=== PATIENT | female | born 1950 | race Caucasian/White ===

== ENCOUNTER 2022-01-16 10:10 | Emergency (ER) | payer OTHER, SELFPAY ==
--- NOTE | ~2022-01-16 | XR_ITS ---
XR hip RT min 2V DATE: 01/16/2022 11:00 INDICATION: Right hip pain for 4 to 5 days. No injury. TECHNIQUE: AP and lateral views COMPARISON: None FINDINGS: Prominent degenerative disc disease is noted at L4-5 and L5-S1. Normal alignment at the right sacroiliac joint. No fracture, dislocation, avascular necrosis or bone destruction of the right hip is detected. Right hip joint space appears relatively preserved. IMPRESSION: No significant abnormality of the right hip Prominent degenerative disc disease at L4-5 and L5-S1 Reviewed, dictated and finalized at location B.
[2022-01-16 10:14] VITALS: BP 141/84; PULSE 72; RESP 14; TEMP 36.1; O2SAT 98
--- NOTE | 2022-01-16 10:37 | ED.EXTPRO ---
HPI - Extremity Problem General Chief complaint: Extremity Problem,Nontraumatic Stated complaint: right back pain Time Seen by Provider: 01/16/22 10:24 History of Present Illness HPI Narrative: Patient is a 71-year-old female here for evaluation of atraumatic right hip pain. Patient states the pain came on about 2 days ago, is worse with movement and with ambulation. The pain originates in her posterior thoracic area and will radiate down her right leg. She also reports intermittent shooting paresthesias down her posterior right leg. She attempted ibuprofen and her friend's gabapentin yesterday without significant relief of her pain. She has been walking but just notes it is painful. Denies any incontinence or retention of bowel or bladder, saddle anesthesia, fevers or chills, nausea or vomiting, history of malignancy or IV drug use. Related Data Home Medications Medication Instructions Recorded Confirmed atorvastatin 40 mg tablet 40 mg PO DAILY 01/07/22 01/16/22 Allergies Allergy/AdvReac Type Severity Reaction Status Date / Time No Known Allergies Allergy Unverified 01/16/22 09:39 Review of Systems Review of Systems: Gen: Denies fevers or chills Eyes: Denies eye pain or visual change ENT: Denies congestion Respiratory: Denies shortness of breath or cough CV: Denies chest pain or palpitations GI: Denies abdominal pain nausea, emesis or diarrhea : denies burning, urgency, frequency or hematuria Musculoskeletal: Reports right hip pain. Denies back pain or muscle pain Neuro: Denies numbness, tingling, weakness or focal weakness Skin: Denies rash Except as documented, all other systems reviewed and negative [facility] Past Medical History Medical History Arthritis HLD (hyperlipidemia) Social History Social History Social History: Pt drinks 3 cups of coffee daily Smoking status: Never smoker Alcohol intake: never Substance use: never Exam Narrative: APPEARANCE: Uncomfortable appearing. EYES: EOMI HEENT: Normocephalic, atraumatic, OMM RESPIRATORY: No respiratory distress Clear to auscultation bilaterally with no rhonchi wheezing or rales. CARDIOVASCULAR: 2+ DP and PT pulses bilaterally. Regular rate and rhythm without murmurs rubs or gallops. ABDOMINAL: Soft, nontender, nondistended, no rebound or guarding MUSCULOSKELETAL: No bony tenderness to palpation along C, T, or L-spine. No bony tenderness to palpation over right hip. Straight leg raise positive on the right. Full range of motion in bilateral lower extremities; notes pain with hip flexion on the right. No edema. NEURO: Awake and alert. Following commands, speech normal, no focal deficits SKIN:: Warm, dry. No rashes lesions or abrasions PSYCHIATRIC: Normal affect/mood Course Vital Signs Vital signs: Vital Signs Temperature 97.0 F L 01/16/22 10:14 Pulse Rate 72 01/16/22 10:14 Respiratory Rate 14 01/16/22 10:14 Blood Pressure 141/84 H 01/16/22 10:14 Pulse Oximetry 98 01/16/22 10:14 Oxygen Delivery Room Air 01/16/22 10:14 Temperature 97.0 F L 01/16/22 10:14 Pulse Rate 70 01/16/22 12:10 Respiratory Rate 15 01/16/22 12:10 Blood Pressure 159/86 H 01/16/22 12:10 Pulse Oximetry 100 01/16/22 12:10 Oxygen Delivery Room Air 01/16/22 10:14 MDM - Extremity (Nontraumatic) MDM Narrative Medical decision making narrative: 71-year-old female here for evaluation of atraumatic right hip pain for the past several days that radiates down her right lower extremity. Here she is nontoxic-appearing with normal vital signs. She has no midline tenderness to her C, T or L-spine, or right hip. Her straight leg raise is positive. Images of the right hip are reassuring. Patient's pain improved with lidocaine patch, ibuprofen and Tylenol in the ED. Likely sciatica given patient's history and physical exam. No b
[2022-01-16] MEDS: ACETAMINOPHEN 325 MG TABLET 650 MG PO (11:03)
[2022-01-16] MEDS: IBUPROFEN 600 MG TABLET PO (11:05)
[2022-01-16] MEDS: CYCLOBENZAPRINE HCL 10 MG TABLET PO (11:06)
--- NOTE | 2022-01-16 11:07 | PC.NURSE ---
Assumed pt care from PALMER Cool at 1100
[2022-01-16] MEDS: LIDOCAINE 5% PATCH 1 PATCH TRANSDERM (11:24)
[2022-01-16 12:10] VITALS: BP 159/86; PULSE 70; RESP 15; O2SAT 100
== END 2022-01-16 12:15 | disposition home or self-care (01) ==
PROVIDERS: Emergency Provider Emergency Medicine; PCP Internal Medicine
DX: M54.31 Sciatica, right side (principal); M19.90 Unspecified osteoarthritis, unspecified site; E78.5 Hyperlipidemia, unspecified
CPT/HCPCS: 73502; 99283; A9270

== ENCOUNTER 2022-01-19 17:05 | Emergency (ER) | payer OTHER, SELFPAY ==
--- NOTE | ~2022-01-19 | CT_ITS ---
EXAMINATION: CT lumbar spine wo con DATE: 01/19/2022 18:08 INDICATION: lower back pain . TECHNIQUE: Computed tomography (CT) of the lumbar spine was performed without intravenous contrast. T he dose-length product was 816.18 mGy-cm. COMPARISON: None. FINDINGS: 5 nonrib-bearing lumbar-type vertebral bodies. Pedicles intact. 5 mm anterolisthesis of L3 on L4. Vertebral body heights preserved. Multilevel degenerative disc disease, severe at L3-4 and L4- 5. Multilevel severe facet arthropathy throughout the lumbar spine. Severe central canal narrowing at L3-4, moderate central canal narrowing at all remaining levels. Severe bilateral neural foraminal na rrowing at L3-4 and L4-5 IMPRESSION: No acute fracture or traumatic malalignment in the lumbar spine. Severe degenerative changes, as abov e. Reviewed, dictated and finalized at location K. IMPRESSION: No acute fracture or traumatic malalignment in the lumbar spine. Severe degener ative changes, as above.
[2022-01-19 17:10] VITALS: BP 145/76; PULSE 84; RESP 20; TEMP 36.4; O2SAT 98
--- NOTE | 2022-01-19 17:54 | ED.EXTPRO ---
HPI - Extremity Problem General Chief complaint: Extremity Problem,Nontraumatic Stated complaint: right hip pain Time Seen by Provider: 01/19/22 17:28 History of Present Illness HPI Narrative: 71-year-old female returns emergency room with unresolved low back pain. Patient was seen 3 days ago and according to chart review was told that it is possible sciatica. Patient was given anti-inflammatories and muscle relaxer and states that the pain has not gotten any better. Denies any saddle anesthesia. States pain radiates down into her right leg. Pain is worse when she attempts to ambulate. Related Data Home Medications Medication Instructions Recorded Confirmed atorvastatin 40 mg tablet 40 mg PO DAILY 01/07/22 01/16/22 Allergies Allergy/AdvReac Type Severity Reaction Status Date / Time No Known Allergies Allergy Verified 01/19/22 17:13 Review of Systems Review of Systems: CONSTITUTIONAL: Denies fever, chills, or sweats. EYES: Denies visual changes, redness, or discharge. ENT: Denies rhinorrhea, congestion, sore throat, or otalgia. CARDIOVASCULAR: Denies chest pain, palpitations, or edema. RESPIRATORY: Denies cough or dyspnea. GASTROINTESTINAL: Denies abdominal pain, nausea, vomiting, or diarrhea. GENITOURINARY: Denies dysuria or hematuria. SKIN: Denies rash or itching. MUSCULOSKELETAL: Reports right lower back pain NEUROLOGIC: Denies headache, numbness, dizziness, or weakness. PSYCHIATRIC: Denies anxiety or depression. [facility] Past Medical History Medical History Arthritis HLD (hyperlipidemia) Social History Social History Social History: Pt drinks 3 cups of coffee daily Smoking status: Never smoker Alcohol intake: never Substance use: never Exam Narrative: GENERAL: Well-appearing, well-nourished, no physical limitations, and in no acute distress. HEAD: Normocephalic, atraumatic. EYES: Conjunctivae normal, PERRLA and EOMI. CHEST: Clear to auscultation. No respiratory distress. No wheezes rales or rhonchi. No tenderness. HEART: Regular rate and rhythm. No murmur heard. Normal peripheral pulses. BACK: No CVA tenderness; No midline lumbar tenderness, no step-offs, no bony abnormality; FROM. +SLR right leg EXTREMITIES: Normal range of motion. No edema. No clubbing or cyanosis SKIN: Warm, dry, no rash. No noted wounds NEURO: No focal deficits. Alert and oriented x3. MAEW. CN's II-XI intact bilaterally, normal gait PSYCH: Cooperative. Normal mood and affect. Course Vital Signs Vital signs: Vital Signs Temperature 36.4 C 01/19/22 17:10 Pulse Rate 84 01/19/22 17:10 Respiratory Rate 20 01/19/22 17:10 Blood Pressure 145/76 H 01/19/22 17:10 Pulse Oximetry 98 01/19/22 17:10 Oxygen Delivery Room Air 01/19/22 17:10 Temperature 36.4 C 01/19/22 17:10 Pulse Rate 84 01/19/22 17:10 Respiratory Rate 20 01/19/22 17:10 Blood Pressure 145/76 H 01/19/22 17:10 Pulse Oximetry 98 01/19/22 17:10 Oxygen Delivery Room Air 01/19/22 17:10 MDM - Extremity (Nontraumatic) Imaging Data Radiologist's impression: Impressions Lumbar Spine CT 01/19/22 18:29 IMPRESSION: No acute fracture or traumatic malalignment in the lumbar spine. Severe degenerative changes, as above. Discharge Plan Discharge Clinical Impression: Acute low back pain with sciatica Patient Disposition: Home, Self-Care Condition: Stable Instructions: Antibiotic Form, Sciatica (ED) Prescriptions: New prednisone 20 mg tablet 40 mg PO DAILY 5 Days Qty: 10 0RF tramadol 50 mg tablet 50 mg PO Q6H PRN (Reason: pain) Qty: 15 0RF No Action atorvastatin 40 mg tablet 40 mg PO DAILY naproxen 500 mg tablet 500 mg PO BID Qty: 60 1RF cyclobenzaprine 10 mg tablet 10 mg PO HS PRN (Reason: muscle spasm) Qty: 7 0RF lidocaine [Lidoderm] 5 % adhesive
== END 2022-01-19 19:00 | disposition home or self-care (01) ==
PROVIDERS: Emergency Provider Nurse Practitioner Family; PCP Internal Medicine
DX: M54.41 Lumbago with sciatica, right side (principal); E78.5 Hyperlipidemia, unspecified; M19.90 Unspecified osteoarthritis, unspecified site
CPT/HCPCS: 72131; 96372; 99284; J1100

== ENCOUNTER 2022-02-25 10:33 | Emergency (ER) | payer OTHER, SELFPAY ==
[2022-02-25] VITALS (7 sets, daily range): BP systolic 122–157; BP diastolic 71–78; PULSE 63–74; RESP 12–14; TEMP 36.3; O2SAT 97–100
--- NOTE | ~2022-02-25 | CT_ITS ---
EXAMINATION: CT brain wo con DATE: 02/25/2022 12:58 INDICATION: Vertigo TECHNIQUE: Computed tomography (CT) of the head was performed without intravenous contrast. Sagittal and coronal reconstructions were performed. The mA was adjusted according to patient size. Iterative reconstruction technique was employed. The dose-length product was 529.67 mGy-cm. COMPARISON: None FINDINGS: No acute intracranial hemorrhage, acute infarction or abnormal extra axial fluid collection. Ventricl es are normal and symmetric. No mass/mass effect. The orbits, paranasal sinuses and mastoid air cells are normal. Minimal intracranial calcified cerebral atherosclerosis is noted at the carotid siphons. IMPRESSION: 1. Normal brain. No acute intracranial process. Reviewed, dictated and finalized at location B.
--- NOTE | 2022-02-25 10:44 | ECG_ITS ---
Measurements Intervals Adrian Rate: 72 P: 43 MO: 161 QRS: 52 QRSD: 86 T: 23 QT: 406 QTc: 445 Interpretive Statements SINUS RHYTHM BASELINE ARTIFACT IS PRESENT NO PREVIOUS ECG AVAILABLE FOR COMPARISON Electronically Signed On 02-25-2022 15:25:21 CDT by Marva Alejandro M.D.
[2022-02-25 10:58] LABS: Basophils Percent Auto 0.3 % (0.2-1.2); Eosinophils Absolute Auto 0.1 K/mm3 (0-0.3); Eosinophils Percent Auto 0.6 % (0-4.4); Hematocrit 39.9 % (37.0-47.0); Hemoglobin 12.5 g/dL (12.0-15.0); Immature Granulocyte Absolute 0.02 K/mm3 (0.00-0.031); Immature Granulocyte Percent A 0.2 % (0-0.5); Lymphocytes Absolute Auto 1.97 K/mm3 (0.9-3.2); Lymphocytes Percent Auto 21.7 % (18.3-44.2); Mean Corpuscular HGB Conc 31.3 g/dl (32-36); Mean Corpuscular Hemoglobin 26.6 pg (26-34); Mean Corpuscular Volume 84.9 fl (80-100); Mean Platelet Volume 10.2 fl (7.4-10.4); Monocytes Absolute Auto 0.4 K/mm3 (0.1-0.6); Monocytes Percent Auto 4.3 % (2.6-8.5); Neutrophils Absolute Auto 6.6 K/mm3 (1.3-6.7); Neutrophils Percent Auto 72.9 % (45.5-73.1); Platelet Count Result 305 k/mm3 (150-375); Red Cell Distribution Width 13.6 % (11.5-14.5); White Blood Count 9.1 K/mm3 (4.5-10.0)
[2022-02-25 11:12] LABS: Alanine Aminotransferase 25 U/L (6-35); Albumin Level 4.4 g/dL (3.5-5.1); Alkaline Phosphatase 91 U/L (38-126); Anion Gap 9 mmol/L (8-16); Aspartate Amino Transferase 27 U/L (14-36); Bilirubin,Total 0.6 mg/dL (0.2-1.3); Blood Urea Nitrogen 22 mg/dL (7-17); Calcium 9.2 mg/dL (8.4-10.2); Carbon Dioxide 27 mmol/L (22-30); Chloride 102 mmol/L (98-107); Estimated CRCL calculation 58 ml/min; Estimated Glomerular Filt Rate > 60; Glucose 162 mg/dL (65-110); Lipase 189 U/L (23-300); Potassium 4.4 mmol/L (3.4-5.0); Sodium 138 mmol/L (137-145)
[2022-02-25 11:18] LABS: Add Urine Microscopic? NO; Appearance Urine Clear (Clear); Bilirubin Urine Negative (Negative); Blood Urine Negative (Negative); Color Urine Yellow (Yellow); Glucose Urine UA Negative (Negative); Ketones Urine Negative (Negative); Leukocyte Esterase Ur Negative LEU/UL (Negative); Nitrate Urine Negative (Negative); Protein Urine Negative (Negative); Specific Grav Ur 1.024 (1.001-1.035); Urobilinogen Urine Negative mg/dL (<2.0)
--- NOTE | 2022-02-25 12:24 | ED.DIZZY ---
HPI - Dizziness General Chief Complaint: Dizziness Stated Complaint: dizzy Time Seen by Provider: 02/25/22 12:00 History of Present Illness HPI Narrative: Patient is a 71-year-old female with a history of hyperlipidemia presenting with dizziness. Patient states that she woke up this morning and had a sensation of vertigo associated with nausea and an episode of vomiting. Patient states that if she lays still the vertigo goes away. She states that currently she only feels it slightly when she is moving her head. She denies headache, numbness, weakness, slurred speech, ataxia, vision changes. States that she still feels mildly nauseous. She denies chest pain, shortness of breath, abdominal pain, diarrhea, dysuria, leg swelling. Related Data Home Medications Medication Instructions Recorded Confirmed atorvastatin 40 mg tablet 40 mg PO DAILY 01/07/22 01/16/22 Allergies Allergy/AdvReac Type Severity Reaction Status Date / Time No Known Allergies Allergy Verified 02/25/22 10:44 Review of Systems Review of Systems: All systems reviewed & are unremarkable except as noted in HPI and below PMFSH Past Medical History Medical History Arthritis HLD (hyperlipidemia) Social History Social History Social History: Pt drinks 3 cups of coffee daily Smoking status: Never smoker Alcohol intake: never Substance use: never Exam Narrative: GENERAL: Well-appearing, well-nourished, and in no acute distress. HEAD: Normocephalic, atraumatic. EYES: PERRLA and EOMI. ENT: Nares clear, no rhinorrhea or epistaxis. Mucous membranes moist. NECK: Supple. CHEST: Clear to auscultation. No respiratory distress. HEART: Regular rate and rhythm. No murmur heard. Normal peripheral pulses. ABDOMEN: Soft, nontender, nondistended, normal active bowel sounds. EXTREMITIES: Normal range of motion. No edema. SKIN: Warm, dry, no rash. NEURO: No focal deficits. Cranial nerves intact. [id number] intact. No pronator drift. 5 out of 5 strength in all extremities. No sensory deficits. Alert and oriented x3. PSYCH: Normal mood and affect. Course Course Emergency Course: Patient is a 71-year-old female presenting with dizziness. Patient is slightly hypertensive, though his vitals are within normal limits. Patient is well-appearing and in no acute distress. Exam is remarkable for the above. She is neurologically intact. Given the description of her symptoms, I suspect that this is a peripheral cause of vertigo however given her age I will obtain CT head. Will give fluids, Zofran, meclizine. EKG per my interpretation shows normal sinus rhythm, normal axis and intervals, no ST elevations or depressions. Blood work is unremarkable. CT head shows no acute abnormalities. On reevaluation, the patient reports significant improvement in her symptoms. She no longer feels nauseated or dizzy. She is able to tolerate p.o. intake. Ambulating without difficulty. I will prescribe short course of meclizine and I advised close follow-up with her primary care provider. Strict return precautions given. Patient and her sister voiced understanding and are agreeable with plan. Discharged in stable condition. Vital Signs Vital signs: Vital Signs Temperature 97.4 F L 02/25/22 10:41 Pulse Rate 74 02/25/22 10:41 Respiratory Rate 14 02/25/22 10:41 Blood Pressure 157/78 H 02/25/22 10:41 Pulse Oximetry 100 02/25/22 10:41 Temperature 97.4 F L 02/25/22 10:41 Pulse Rate 72 02/25/22 15:29 Respiratory Rate 14 02/25/22 15:29 Blood Pressure 122/71 02/25/22 15:29 Pulse Oximetry 97 02/25/22 15:29 MDM - Dizziness Lab Data Result diagrams: 02/25/22 10:52 02/25/22 10:52 Labs: Lab Results 02/25/22 02/25/22 02/25/22 Range/Units 10:52 10:52 10:58 WBC 9.1 (4.5-10.0) K/mm3 RB
[2022-02-25] MEDS: SODIUM CHLORIDE 0.9% IV 1,000 ML 999 ML IV CONT (13:01)
[2022-02-25] MEDS: MECLIZINE HCL 25 MG TABLET PO (13:02)
[2022-02-25] MEDS: ONDANSETRON INJ 4 MG/2 ML VIAL IV PUSH ×2 (13:02→14:27)
== END 2022-02-25 15:31 | disposition home or self-care (01) ==
PROVIDERS: General Practice; Emergency Provider Emergency Medicine; PCP Internal Medicine
DX: R42 Dizziness and giddiness (principal); R11.0 Nausea; E78.5 Hyperlipidemia, unspecified; M19.90 Unspecified osteoarthritis, unspecified site
CPT/HCPCS: 36415; 70450; 80053; 81003; 83690; 85025; 93005; 96361; 96374; 96375; 99284; A9270; J2405; J7030

== ENCOUNTER 2022-03-04 14:00 | Outpatient (RCR) | payer OTHER, SELFPAY ==
--- NOTE | 2022-02-09 16:55 | PTOPEVAL1 ---
Assessment and note entered by Adelita Leone, PT, DPT Evaluation Information Assessment Status Evaluation Diagnosis low back pain Onset 10 days Subjective Information Pt states she has had low back pain for a few weeks now. Pt states she is limited in how long she can stand or walk d/t pain. She states her pain starts in her low back and travels down her R leg, down into her toes. Reported Pain Level Pain Score 0: Self Report Assessment PT Clinical Summary Beba presents to therapy today for her initial evaluation with a diagnosis of low back pain. Today she reports limitations in both how long she can stand and walk. She ambulated with an antalgic gait pattern when decreased step length lucy as well as no heel strike. She demonstrates tenderness to palpation in her R piriformis as well as a positive slump test on the R. Skilled physical therapy services are indicated to address the deficits noted above, to manage pain, to improve soft tissue mobility, to increase function , and to return to baseline. Plan of Care Interventions Gait Training,Manual Therapy,Neuro Re-education, Patient/Caregiver Educati,Therapeutic Activities, Therapeutic Exercise PT Services Indicated Yes Treatment Frequency and 2x/wk for 4 wks Duration These treatments will address the objective and functional deficits as defined above. The patient will be advanced safely and appropriately in order for the patient to progress towards his/her prior level of function. Additional exercises will be introduced and as well as a comprehensive home exercise program upon discharge, if needed, ?to ensure carryover of functional gains achieved in the clinic. This treatment plan has been reviewed and agreement upon by the patient.
--- NOTE | 2022-02-25 14:12 | PCPTNOTE ---
Patient canceled appointment due to being in ER.
--- NOTE | 2022-03-04 16:49 | PCPTNOTE ---
Patient told her sister to tell vest front presser she is not coming this date and to cancel her appointment.
--- NOTE | 2022-03-11 16:04 | PCPTNOTE ---
Patient called & cancelled scheduled re-evaluation for 03/13/22 due to leaving for vacation. Family member of patient states she plans to stop by the clinic to reschedule when she returns in about a week.
--- NOTE | 2022-04-21 10:44 | PTOPDC ---
Assessment and note entered by Adelita Leone, PT, DPT Evaluation Information Assessment Status Discharge - Pt Not Present Diagnosis low back pain Onset 10 days Subjective Information Patient called & cancelled scheduled re-evaluation for 03/13/22 due to leaving for vacation. Family member of patient states she plans to stop by the clinic to reschedule when she returns in about a week. It has been 53 days since she has returned and she will therefor be discharged. Assessment PT Clinical Summary Beba has completed 4 visits of skilled therapy from 02/09/22 to 02/26/22 and she has not returned since. She will therefore be discharged at this time. If she is to return at a later time, she will need a new order. Plan of Care Treatment Frequency and to be discharged Duration
== END 2022-04-21 13:15 | disposition home or self-care (01) ==
LOC: ANHGOSHPT 14:00
PROVIDERS: PCP Internal Medicine; Visit Provider Podiatrist Foot & Ankle Surgery
DX: M76.61 Achilles tendinitis, right leg (principal)
CPT/HCPCS: 97035; 97110; 97112; 97140; 97161

== ENCOUNTER 2023-05-20 11:16 | Outpatient (CLI) | payer OTHER, SELFPAY ==
[2023-05-20 11:44] LABS: Basophils Percent Auto 0.4 % (0.2-1.2); Eosinophils Absolute Auto 0.1 K/mm3 (0-0.3); Eosinophils Percent Auto 0.9 % (0-4.4); Hematocrit 44.5 % (37.0-47.0); Hemoglobin 13.3 g/dL (12.0-15.0); Immature Granulocyte Absolute 0.01 K/mm3 (0.00-0.031); Immature Granulocyte Percent A 0.2 % (0-0.5); Immature Platelet Fraction Pct 4.2 % (0.9-11.2); Lymphocytes Absolute Auto 1.86 K/mm3 (0.9-3.2); Lymphocytes Percent Auto 33.4 % (18.3-44.2); Mean Corpuscular HGB Conc 29.9 g/dl (32-36); Mean Corpuscular Hemoglobin 26.1 pg (26-34); Mean Corpuscular Volume 87.4 fl (80-100); Mean Platelet Volume 10.4 fl (7.4-10.4); Monocytes Absolute Auto 0.3 K/mm3 (0.1-0.6); Monocytes Percent Auto 5.4 % (2.6-8.5); Neutrophils Absolute Auto 3.3 K/mm3 (1.3-6.7); Neutrophils Percent Auto 59.7 % (45.5-73.1); Platelet Count Result 194 k/mm3 (150-375); Red Blood Count 5.09 M/mm3 (4.2-5.4); Red Cell Distribution Width 13.4 % (11.5-14.5); White Blood Count 5.6 K/mm3 (4.5-10.0)
[2023-05-20 20:14] LABS: Alanine Aminotransferase 18 U/L (6-35); Albumin Level 4.4 g/dL (3.5-5.1); Alkaline Phosphatase 66 U/L (38-126); Anion Gap 11 mmol/L (8-16); Aspartate Amino Transferase 42 U/L (14-36); Bilirubin,Total 0.5 mg/dL (0.2-1.3); Blood Urea Nitrogen 17 mg/dL (7-17); Calcium 9.5 mg/dL (8.4-10.2); Carbon Dioxide 26 mmol/L (22-30); Chloride 102 mmol/L (98-107); Estimated Glomerular Filt Rate > 60; Glucose 140 mg/dL (65-110); Lactate Dehydrogenase 206 U/L (120-246); Potassium 4.4 mmol/L (3.4-5.0); Sodium 139 mmol/L (137-145)
[2023-05-20 21:19] LABS: Folic Acid 16.8 ng/mL (2.76->20)
[2023-05-20 21:21] LABS: Iron 84 ug/dL (37-170)
[2023-05-20 21:32] LABS: Percent Iron Saturation 23 % (20-50)
[2023-05-23 12:49] LABS: Methylmalonic Acid 178 nmol/L (87-318)
== END 2023-05-20 11:17 | disposition home or self-care (01) ==
LOC: ANHLAB 11:18
PROVIDERS: Nurse Practitioner Family; PCP Internal Medicine; Visit Provider Internal Medicine Hematology & Oncology
DX: D64.9 Anemia, unspecified (principal)
CPT/HCPCS: 36415; 80053; 82607; 82728; 82746; 83540; 83550; 83615; 83921; 84238; 85025; 85055

== ENCOUNTER 2024-08-24 07:32 | Outpatient (CLI) | payer OTHER, SELFPAY ==
--- NOTE | ~2024-08-24 | US_ITS ---
Limited Abdominal Sonogram: Real-time sonographic imaging of the right upper quadrant was performed. Clinical History: Abnormal LFTs Findings: The liver appears normal with no evidence of mass lesion or bile duct dilatation. Main por nohemi vein demonstrates normal direction of flow. The gallbladder is well distended, and appears normal with no evidence of gallstone or wall thickening. The common bile duct measures 3 mm. The visualize d pancreas, aorta, and IVC are unremarkable. Impression: No significant abnormality seen. Reviewed, dictated and finalized at location . Impression: No significant abnormality seen.
--- OUTSIDE RECORDS SUMMARY | 2024-08-24 07:37 | XMS_ITS | Clinical Summary ---
Author Organization [facility] Address [address] [place] [address] Care Team Providers Care Manager Inventory Management Name Role Phone Jun Siddiqi MD Primary Care Provider Source Comments [facility],non-owned Affiliates and Associated Physician Practices is amultiple site organization consisting of ambulatory clinics and hospital sitesin [place], [place], [place] and [place]. This disclosure is being madepursuant to the Care Everywhere program and may not contain all information available regarding this patient. Last updated 18.[facility] Medications * Be aware that medications may not be up to date on this document. Alwaysverify current medications with the patient. Medication Sig Dispensed Refills Start Date End Date Status diazePAM (VALIUM) 5 MG tablet 06/19/2020 Active vitamin D, ergocalciferol, (DRISDOL) 1.25 MG (14388 UT) capsule TK 1 C PO Q WK 02/05/2020 Ac tive traZODone (DESYREL) 50 MG tablet TAKE 1 TABLET BY MOUTH EVERY DAY NEEDED Active raNITIdine (ZANTAC) 300 MG tablet TK 1 T PO QD HS Active omeprazole (PRILOSEC) 20 MG capsule TAKE 1 CAPSULE BY MOUTH EVERY DAY NEEDED 10/02/2020 Active sulfamethoxazole-trim ethoprim (Bactrim DS; Septra DS) 800-160 MG tablet Take 1 (one) tablet by mouth once daily 2 tablet 4 06/28/2024 Active Active Problems No known active problems Encounters Date Type Department Care Team Description 08/07/2024 Telephone [facility] - Orthopedics [address] [place] [address], [place] [address] Inés Szymanski Appointment 08/04/2024 Transcribe Orders [facility] [address] [place] [address], [place] [id number] Cory Khoury MD Low back pain, unspecified back pain laterality, unspecified chronicity, unspecified whether sciatica present 06/28/2024 Refill [facility] - Nephrology [address] [place] [address], [place] [address] Shannan Gonzalez MD MEDICATION REFILL from Last 3 Months Social History Tobacco Use Types Packs/Day Years Used Date Smoking Tobacco: Never Smokeless Tobacco: Never Sex and Gender Information Value Date Recorded Sex Assigned at Not on file Gender Identity Not on file Sexual Orientation Not on file Last Filed Vital Signs Vital Sign Reading Time Taken Comments Blood Pressure - - Pulse - - Temperature - - Respiratory Rate - - Oxygen Saturation - - Inhaled Oxygen Concentration - - Weight 83.9 kg (185 lb) 10/28/2020 11:50 AM CDT Height 144.8 cm (4' 9 ) 10/28/2020 11:50 AM CDT Body Mass Index 40.03 10/28/2020 11:50 AM CDT Plan of Treatment Health Maintenance Due Date Last Done Comments BONE DENSITY TESTING 1948 COLOGUARD (AGES 45-75) - COL ON CA SCREENING 1948 COLON MONITORING 1948 COLONOSCOPY - COLON CA SCREENING 1948 CT COLONOGRAPHY - COLON CA SCREENING 1948 Colorectal Cancer Screening 1948 FIT - COLON CA SCREENING 1948 FLEX SIG - COLON CA SCREENING 1948 LIPID TESTING 1948 MAMMOGRAM 1948 HEPATITIS C SCREENING 09/14/1966 DTAP/TDAP/TD VACCINES (1 - Tdap) 09/19/1967 PNEUMOCOCCAL VACCINE 50+ (1 of 1 - PCV) 1998 ZOSTER VACCINE (1 of 2) 1998 Respiratory Syncytial Virus (RSV) Vaccine Pt: or over 60 yrs (1 - 1-dose 75+ series) 09/19/2023 COVID-19 VACCINE (2023-2 5 season) 2024 DEPRESSION SCREENING 05/17/2024 INFLUENZA VACCINE Completed 02/24/2024, 03/11/2020, 03/20/2019 HEPATITIS B VACCINE Aged Out No longe r eligible based on patient's age to complete this topic HIB VACCINE Aged Out No longer eligi ble based on patient's age to complete this topic HPV VACCINE Aged Out No longer eligi ble based on patient's age to complete this topic MENINGOCOCCAL (Group B) VACCINE SHARED DECISION-MAKING Aged Out No longer eligible based on patient's age to complete this topic MENINGOCOCCAL GROUPS A/C/Y/W VACCINE Aged Out No longer eligible b ased on patient's age to complete this topic Care Teams Manager Inventory Management Relationship Specialty Start Date End Date Jun Siddiqi MD PCP - General Family Medicine 10/28/20
--- OUTSIDE RECORDS SUMMARY | 2024-08-24 07:37 | XMS_ITS | Continuity of Care Document ---
Author Organization [facility] Address [address] [place] [address] [place] [address] Phone Care Team Providers Care Parcel Post Truck Driver Name Role Phone Jun Siddiqi MD Unavailable Unavailable Allergies, Adverse Reactions, Alerts Substance Reaction Status Criticality No Known Allergies Active No Inform ation Procedures Procedure Date PREV VISIT, EST, 65 & OVER OFFICE/OUTPATIENT VISIT, EST PREV VISIT, EST, 65 & OVER OFFICE/OUTPATIENT VISIT, EST OFFICE/OUTPATIENT VISIT, EST OFFICE/OUTPATIENT VISIT, EST OFFICE/OUTPATIENT VISIT, EST OFFICE/OUTPATIENT VISIT, EST OFFICE/OUTPATIENT VISIT, EST PREV VISIT, NEW, 65 & OVER Advance Directives Directive Yes / No Effective Date File Name No Information Encounters Encounter Description Practice Location Reason(s) For Visit Diagnoses Date Provider Providers Copied on Encounter [facility], [address], [place], [place], [id number], tel:[phone] [facility] No Information 0 Devang Barahona. [address], [place], [place], [address] , [place]. tel:[phone] PREV VISIT, EST, 65 & OVER [facility], [address], [place], [place], [address], [place] tel:[phone] [facility] physical (chief complaint) Encntr for general adult medical exam w/o abnormal findings 0 Devang Barahona. [address], [place], [place], [address] , [place]. tel:[phone] OFFICE/OUTPA TIENT VISIT, [facility], [address], [place], [place], [address], [place] tel:[phone] [facility] nose bleeding1 (chief complaint) GERD1 (chief complaint) HLP (chief complaint) insomnia1 (chief complaint) CardiomegalyHyperli pidemiaInsomniaBlee ding from noseGERD w/o esophagitis 8 Devang Barahona. [address], [place], [place], [address] , [place]. [phone] PREV VISIT, EST, 65 & OVER [facility], [address], [place], [place], [address], [place] tel:[phone] [facility] Physical (chief complaint) Encntr for general adult medical exam w/o abnormal findings 8 Devang Barahona. [address], [place], [place], [address] , [place]. tel:[phone] Referring Provider: Chaz Nichole [address], [place], [place], [address]. tel:[phone] OFFICE/OUTPA TIENT VISIT, [facility], [address], [place], [place], [address], [place] tel:[phone] [facility] cardiomega aly1 (chief complaint) foot pain1 (chief complaint) GERD1 (chief complaint) memory loss1 (chief complaint) GERD w/o esophagitisCardiome galyPain in left footMemory lossEncounter for screening for malignant neoplasm of colon 8 Devang Barahona. [address], [place], [place], [address] , [place]. tel:[phone] Referring Provider: Chaz Nichole [address], [place], [place], [address]. tel:[phone] OFFICE/OUTPA TIENT VISIT, [facility], [address], [place], [place], [address], [place] tel:[phone] [facility] foot pain1 (chief complaint) HLP (chief complaint) glucose1 (chief complaint) postmeno1 (chief complaint) GERD1 (chief complaint) HyperlipidemiaHyper glycemiaPain in left footPostmenopausal status NOS 8 Devang Angeles [address], [place], [place], [address] , [place]. tel:[phone] Referring Provider: Chaz Nichole [address], [place], [place], [address]. tel:[phone] OFFICE/OUTPA TIENT VISIT, [facility], [address], [place], [place], [address], [place] tel:[phone] [facility] insomnia1 (chief complaint) GERD1 (chief complaint) cold1 (chief complaint) Acute upper respiratory infection, unspecifiedInsomnia GERD w/o esophagitis 8 Devang Angeles [address], [place], [place], [address] , [place]. tel:[phone] Referring Provider: Chaz Nich[address], [place], [place], [address]. tel:[phone] OFFICE/OUTPA TIENT VISIT, [facility], [address], [place], [place], [address], [place] tel:[phone] [facility] GERD1 (chief complaint) HLP (chief complaint) insomnia1 (chief complaint) InsomniaGERD w/o esophagitisBody mass index (BMI) 40.0-44.9, adult 8 Devang Angeles [address], [place], [place], [address] , [place]. tel:[phone] Referring Provider: Chaz Nichole [address], [place], [place], [address]. tel:[phone] OFFICE/OUTPA TIENT VISIT, [facility], [address], [place], [place], [address], [place] tel:[phone] [facility] foot pain1 (chief complaint) hand pain1 (chief complaint) obeisty1 (chief complaint) colon CA screening (chief complaint) Body mass index (BMI) 40.0-44.9, adultPain in left footPain in left handEncounter for screening for malignant neoplasm of colon 7 Devang Barahona. [address], [place], [place], [address] , [place]. [phone] Referring Provider: Chaz Nichole, [place], [place], [address]. tel:[phone] OFFICE/OUTPA TIENT VISIT, [facility], [address], [place], [place], [address], tel:[phone] [facility] glucose (chief complaint) HLP (chief complaint) finger pain1 (chief complaint) heel pain1 (chief complaint) HyperlipidemiaHyper glycemiaPain in left footBody mass index (BMI) 40.0-44.9, adult 7 Devang Barahona. [address] [facility] [address], [place], [place], [address] , [place]. tel:[phone] Referring Provider: Chaz Nichole, [place], [place], [address]. tel:[phone] PREV VISIT, NEW, 65 & OVER [facility], [address], [place], [place], [address], [place] tel:[phone] [facility] PHysical (chief complaint) Encntr for general adult medical exam w/o abnormal findings 7 Devang Barahona. [address], [place], [place], [address] , [place]. tel:[phone] Referring Provider: Chaz Nichole, [place], [place], [address]. tel:[phone] Family History Family Member Type Diagnosis Age At Onset Sister Problem (finding) Alive and well Father Problem (finding) Father Problem (finding) of 102 due to old age Mother Problem (finding) Mother Problem (finding) Coronary artery disease 82 Payers Payer name Insurance type Covered democrat ID Authoriza tion(s) No Information Social History Type Description Quantity Date Captured Comments Sex Female Smoking Status No Information Chief Complaint And Reason For Visit No Information Plan Of Treatment Date Type Action Status Goal Special diet education compl eted Goal Prescribed dietary intake co mpleted Referral Ordered: DOPPLER ECHO EXAM, HEART ordered Referral Ordered: EKG for initial prevent exam ordered Referral Ordered: CHEST X-RAY PA/LAT TWO-VIEWS ordered Referral Ordered: Plastic Surgery (related to Encntr for general adult medical exam w/o abnormal findings) ordered Referral Ordered: Podiatry (related to Encntr for general adult medical exam w/o abnormal findings) ordered Referral Ordered: Referrals: Podiatry. Evaluate and treat ordered Referral Ordered: HEEL/OSCALCIS XRAY Left ordered Referral Ordered: Referrals: Plastic Surgery. Evaluate and treat ordered Referral Ordered: MAMMOGRAM, SCREENING ordered Referral Ordered: DXA BONE DENSITY, AXIAL ordered History Of Present Illness Encounter Date Complaint History Of Prese nt Illness physical Pt needs annual physical Pt has not been here for two years. her sister states that she has been having short term memory loss recently. Pt denies any mental status change. Pt denies any headache. Pt denies any usp memory loss Pt is still fully functional. PT can carry normal conversations still. PT no longer has insomnia and GERD Pt is off all meds. Pt denies any chest pain, sob or cough Pt never did cardiac echo. PT denies any other complaints GERD1 Pt has daily SANTANA D Pt takes pepcid and her symptoms are well controlled. Pt denies any nausea, vomiting HLP Pt has mild HLP. Pt is trying low fat and low carb diet insomnia1 pt has insomnia pt has cardiomegaly. Pt is noncompliant with cardiac echo. pt denies any chest pain or sob. Pt denies any exertional symptoms. Pt does snore and she feels fatigue but she is noncompliant with sleep study nose bleeding1 Pt notices left side nose bleeding x 2 episodes during last two weeks. Pt c/o nasal congestion. Pt notices some sneezing Pt states that she did apply pressure and the nose bleeding stopped after several mins. pt denies any other bleeding. pt denies any recurrent bleeding. Pt denies any sore throat Physical Pt needs annual physical. pt c/o nausea, , diffuse myalgia, subjective fever since last night. pt has mild headache Pt denies any diarrhea Pt has GERD and Pepcid helps. Pt has insomnia pt took vistaril but she thinks the dose was too strong. Pt feels fatigue the next day. Pt denies any snoring or any trouble with breathing at night. Pt denies any sob. Pt denies any chest pain. cardiomegaaly1 Pt has cardiomeg micky. Pt denies any chest pain or sob. Pt does snore at night Pt denies any faigue. foot pain1 Pt has foot pain . Pt needs foot surgery. Pt had benign EKG and her chest xray showed cardiomegaly. GERD1 Pt has GERD Pt t akes pepcid BID. Pt states that it is helping her. 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 Pt denies any chest pain or headache foot pain1 Pt has chronic l eft foot pain with some plantar fascinitis. Pt has a fatty spot medial left foot Pt is seeing podiatry and she will have surgery soon and she needs medical clearance. HLP Pt has mild HLP Pt has been trying low fat and low carb diet glucose1 Pt has mild high glucose. Pt denies any polyuria, polydispia postmeno1 Pt is postmeno. Pt still has not done bone density yet Pt denies any h/o fracture GERD1 Pt states that z antac does not help her heartburn. pt deneis any chest pain or nausea Pt denies any abd pain insomnia1 Pt states that s he takes vistaril and she sleep well. Pt states that 50 mg is too strong so she is only taking 25 mg now. pt denie any snoring GERD1 Pt takes zantac and is helping Pt does eat a lot of spicy food. Pt denies any abd pain, nausea cold1 Pt c/o productiv e coughing with green phlegm, purulent sinus drainage, sore throat, ear pain since yesterday pt denies any fever, chill. Pt does have sick contact. Pt denies any travel. Pt failed OTC meds GERD1 Pt has daily SANTANA D and hearburn for one year. Pt denies any abdominal pain. Pt states that she has heartburn regardless type of food. Pt denies any appteit loss or weight loss. Pt denies any diarrhea. HLP Pt has HLP. Pt h as been diet and exercsie insomnia1 Pt has diffiuclt y falling asleep for long time Pt denie any snoring or any trouble with breathing at night foot pain1 Pt c/o left heel and plantar pain. pt has heel spur and plantar fascinitis Pt is seeing substance abuse prevention coordinator and she received injection which helped her pain partially. Pt still has some discomfort. .Pt denies any foot injury or worsening pain hand pain1 Pt has left palm er flexor tendosis and she had tendon release surgery by Juan Carlos Isbell. Pt states that her left finger is more flexible now. Pt still feels some pain around left palm occassionally. Pt denies any numbness obeisty1 Pt is obese. Pt is trying diet and exercise for weight loss. Her BMI is over 40. colon CA screening Pt denies any bowel change and she geronimo snot want colonoscopy. Pt had stool globin done which is negative. glucose Pth as mild high glucose on lab. Pt denies any polyuria, polydipsia HLP Pt has HLp. Pt i s not on any diet finger pain1 Pt has left 4th finger tendon calcification and she just seen Dr. sparrow and will have surgery soon heel pain1 pt has chronic l eft heel pain. pt has not heard from podiatry yet. Pt has heel spur on xray PHysical Pt needs annual physical. Pt has history of bilateral knee replacement in 2015. Pt doing ok Pt c/o left heel pain for two months. Pt denies any injury. Pt denies any calf pain. Pt denies any plantar surace pain. pt denies any foot numbness. Pt also notices painful right 4th finger for several months and also she has hard time flex her right 4th finger without any pain. Pt denies any finger numbness. Pt denies any finger injury Pt denies any other complaints Instructions Date Instruction Additional Infor mation Special diet education Related t o Body mass index (BMI) 39.0-39.9, adult Increase physical activity Relat ed to Cardiomegaly Weight management Related to Car diomegaly Prescribed dietary intake Relate d to Body mass index (BMI) 39.0-39.9, adult Perform monthly self breast examinations. Related to Encntr for general adult medical exam w/o abnormal findings Quit smoking. Related to Encnt r for general adult medical exam w/o abnormal findings Increase activity. Related to En cntr for general adult medical exam w/o abnormal findings Avoid provocative fo ods: citrus, alcohol, coffee, chocolate, mints. Related to GERD w/o esophagitis Eat smaller meals, n o eating three hours prior to bedtime. Related to GERD w/o esophagitis Elevate head of bed prior to sle ep. Related to GERD w/o esophagitis Follow a low sodium diet. Relate d to Hyperlipidemia Increase activity. Related to Hy perlipidemia Prescribed Diet Educ ation/Lifestyle Education Regarding Diet Related to Dietary Surveillance and Counseling Prescribed Activity and Exercise Education Related to Dietary Surveillance and Counseling Prescribed Diet Educ ation/Lifestyle Education Regarding Diet Related to Dietary Surveillance and Counseling Prescribed Activity and Exercise Education Related to Dietary Surveillance and Counseling Prescribed Activity and Exercise Education Related to Dietary Surveillance and Counseling Prescribed Diet Educ ation/Lifestyle Education Regarding Diet Related to Dietary Surveillance and Counseling Increase physical activity Relat ed to Insomnia Weight management Related to Ins omnia Prescribed Activity and Exercise Education Related to Dietary Surveillance and Counseling Prescribed Diet Educ ation/Lifestyle Education Regarding Diet Related to Dietary Surveillance and Counseling Increase physical activity Relat ed to Body mass index (BMI) 40.0-44.9, adult Weight management Related to Bod y mass index (BMI) 40.0-44.9, adult Follow a low sodium diet. Relate d to Hyperlipidemia Increase activity. Related to Hy perlipidemia Prescribed Diet Educ ation/Lifestyle Education Regarding Diet Related to Dietary Surveillance and Counseling Prescribed Activity and Exercise Education Related to Dietary Surveillance and Counseling Prescribed Activity and Exercise Education Related to Dietary Surveillance and Counseling Prescribed Diet Educ ation/Lifestyle Education Regarding Diet Related to Dietary Surveillance and Counseling Perform monthly self breast examinations. Related to Encntr for general adult medical exam w/o abnormal findings Increase activity. Related to En cntr for general adult medical exam w/o abnormal findings Assessments Type Assessment Date No Information
--- OUTSIDE RECORDS SUMMARY | 2024-08-24 07:37 | XMS_ITS | Clinical Summary ---
Author Organization [facility] Angel Alfaro Address [address] [place] [address] Care Team Providers Care Tour Manager Name Role Phone Issa Gonzales MD Primary Care Provider Allergies No known active allergies Medications omeprazole (PriLOSEC) 20 mg Capsule, Delayed Release(E.C.) Take 20 mg by mouth daily. Active aspirin (ECOTRIN EC) 81 mg Tablet, Delayed Release (E.C.) Take 81 mg by mouth daily. Active atorvastatin (LIPITOR) 40 mg tablet Take 40 mg by mouth daily. Active zolpidem (AMBIEN) 10 mg tablet Take 10 mg by mouth nightly as needed for Insomnia. Active metFORMIN (GLUCOPHAGE) 500 mg tablet Take 500 mg by mouth 2 times daily with meals. Active cyanocobalamin 1,000 mcg Tablet Take 1,000 mcg by mouth daily. Active Active Problems No known active problems Encounters Date Type Department Care Team Description 08/02/2024 External Device Data [facility] ABSTRACTION Provider, Abstract 07/22/2024 External Device Data [facility]STRACTION Provider, Abstract 07/21/2024 External Device Data [facility]STRACTION Provider, Abstract 07/18/2024 External Device Data [facility] Provider, Abstract 07/04/2024 External Device Data [facility]STRACTION Provider, Abstract 06/08/2024 External Device Data [facility]STRACTION Provider, Abstract 06/07/2024 External Device Data [facility]STRACTION Provider, Abstract 06/06/2024 External Device Data [facility] ABSTRACTION Provider, Abstract 05/30/2024 External Device Data [facility] ABSTRACTION Provider, Abstract from Last 3 Months Family History Relation Name Status Comments Daughter Alive Father Mother Sister Alive Son 1 Alive Son 2 Alive Social History Tobacco Use Types Packs/Day Years Used Date Smoking Tobacco: Never Smokeless Tobacco: Never Tobacco Cessation:Counseling Given: Not Answered Alcohol Use Standard Drinks/Week Comments Never 0 (1 standard drink = 0.6 oz pur e alcohol) Comments Unknown Sex and Gender Information Value Date Recorded Sex Assigned at Not on file Legal Sex Female 3:07 PM MOLD SANDER Gender Identity Not on file Sexual Orientation Not on file Last Filed Vital Signs Vital Sign Reading Time Taken Comments Blood Pressure 139/81 06/03/2023 10:49 AM MOLD SANDER Pulse 98 06/03/2023 10:49 AM MOLD SANDER Temperature 36.7 C (98.1 F) 05/20/2023 10:37 AM MOLD SANDER Respiratory Rate 18 06/03/2023 10:49 AM MOLD SANDER Oxygen Saturation 96% 06/03/2023 10:49 AM MOLD SANDER Inhaled Oxygen Concentration - - Weight 77.6 kg (171 lb) 06/03/2023 10:49 AM MOLD SANDER Height 152.4 cm (5') 05/20/2023 10:37 AM MOLD SANDER Body Mass Index 33.4 05/20/2023 10:37 AM MOLD SANDER Plan of Treatment Health Maintenance Due Date Last Done Comments DTAP/TDAP/TD VACCINES (1 - Tdap) 09/19/1967 COLORECTAL SCREENING 1993 Colorectal Cancer Screening 1993 FIT-DNA Q 3 years 1993 FIT/FOBT Q 1 year 1993 Flex Sig/CT Colonography Q 5 years 1993 PNEUMOCOCCAL VACCINE 50+ YEARS (1 of 1 - PCV) 09/18/18 99 ZOSTER VACCINE (1 of 2) 1998 OSTEOPOROSIS SCREENING 2013 RSV VACCINE (60+ or ) (1 - 1-dose 75+ series) 09/19/2023 INFLUENZA VACCINE (#1) 2023 Insurance [facility] MEDICAID Care Teams Tour Manager Relationship Specialty Start Date End Date Issa Gonzales MD PCP - General Internal Medicine 05/04/23
--- OUTSIDE RECORDS SUMMARY | 2024-08-24 07:37 | XMS_ITS | CONTINUITY OF CARE DOCUMENT ---
Author Name domitila damarisedil Address Unknown Organization [facility] Address [address] [place] [address] Phone [phone] Care Team Providers Care Ecclesiastical Worker Name Role Phone Melvin Siegel MD Unavailable [phone] TENNILLE BRODERICK MD Unavailable TENNILLE BRODERICK MD Unavailable [phone] PROBLEMS Condition Status Date Provider Notes Screening active Melvin Siegel MD Hyperlipidemia active Mirtha Ventimiglia FN P Diabetes mellitus, type 2 active Melvin duarte MD neg egfr and uacr Obesity active Mirthamarin Sweetmimaikol [employer] ENCOUNTERS Date Type Provider Location Encounter Diag nosis - In-person encounter Office Visit Melvin Siegel MD [facility] HyperlipidemiaDiabetes mellitus, type 2Obesity VITAL SIGNS Date Observation Value Provider blood pressure, diastolic 80 mm[Hg] Li nkLogic blood pressure, systolic 142 mm[Hg] Raeann kLogic Body Mass Index (Ratio) 36.15 kg/m2 Surinder Siegel MD height E&M 58 [in_i] Nick y blood pressure, cuff size regular Ja rret blood pressure, diastolic 80 mm[Hg] Ja rret blood pressure, systolic 142 mm[Hg] Jar ret pulse rate 73 /min y respiratory rate E&M 12 /min oxygen saturation, oximetry 98 % weight E&M 173 [lb_av] y ALLERGIES No Known Drug Allergies HISTORY OF MEDICATION USE Medication Status Instructions Dates Provider Indications Com ments aspirin 81 mg tablet,chewable active Take 1 tablet by mouth once a day 9 Mirtha Ventimiglia [employer] metformin 500 mg tablet extended release 24 hr active Take 1 tablet by mouth once a day 9 Mirtha Ventimiglia [employer] Zestril 2.5 mg tablet active Take 1 tablet by mouth once a day 9 Mirtha Ventimiglia [employer] zolpidem 10 mg tablet active Mirtha Ventimiglia [employer] atorvastatin 40 mg tablet active Mirtha Ventimiglia [employer] SOCIAL HISTORY Date Observation Value Provider personal history of marijuana use no Mirtha Ventimiglia [employer] drug use no Mirtha Ventimig siri [employer] alcohol use, average drinks per day socia l Mirtha Ventimiglia [employer] alcohol use yes Mirtha Ventimig siri [employer] smoking status Never smoker INSURANCE PROVIDERS Payer name Policy type / Coverage type [facility] republican [place] MEDICAID (2) Medicaid [id number] ADVANCE DIRECTIVES Name Date DISCUSSED - NO DECISION MADE TREATMENT PLAN Date Name Performer :neg tsh and vit d Melvin Siegel MD Cardiology:weight loss encourage d. Mirtha Ventimiglia [facility] Cardiology:Will get recent labs r emains on statin therapy H er updated medication list for this problem includes: Atorvastatin 40 Mg Tablet (Atorvastatin) Mirtha Ventimiglia [facility] Cardiology:last note d hgb A1C was 6.5% W ill have her resume metformin w ill get recent labs from PCP S he was encouraged to monitor diet and lose weight H er updated medication list for this problem includes: Aspirin 81 Mg Tablet,chewable (Aspirin) ..... Take 1 tablet by mouth once a day Metformin 500 Mg Tablet Extended Release 24 Hr (Metformin) ..... Take 1 tablet by mouth once a day Zestril 2.5 Mg Tablet (Lisinopril) ..... Take 1 tablet by mouth once a day Mirtha Castellanos [facility] Date Name EKG CT, Coronary Calcium Score
== END 2024-08-24 07:33 | disposition home or self-care (01) ==
PROVIDERS: PCP Internal Medicine; Visit Provider Internal Medicine
DX: R94.5 Abnormal results of liver function studies (principal)
CPT/HCPCS: 76705

== ENCOUNTER 2025-01-17 12:14 | Outpatient (CLI) | payer OTHER, SELFPAY ==
--- NOTE | ~2025-01-17 | MM_ITS ---
EXAMINATION: MM screening jasmina BI w bettye HISTORY: Screening TECHNIQUE: Craniocaudal and mediolateral oblique 3-D tomosynthesis images were obtained and synthetic 2-D images were generated. CAD analysis was submitted and interpreted. COMPARISON: No prior mammogram is available for comparison at this institution. BREAST PARENCHYMAL COMPOSITION: Not Dense: The breasts are almost entirely fatty. FINDINGS: There is no evidence of suspicious mass, calcification, or architectural distortion to suggest malignancy in either breast. [There has been no significant interval change. IMPRESSION: 1. No mammographic evidence of malignancy. Recommend routine screening mammography in one year. BI-RADS Category 1: Negative Reviewed, dictated, and finalized at Location [facility]. Reviewed, dictated and finalized at location Q. IMPRESSION: 1. No mammographic evidence of malignancy. Recommend routine screening mammogra phy in one year. BI-RADS Category 1: Negative
--- OUTSIDE RECORDS SUMMARY | 2025-01-17 13:39 | XMS_ITS | Clinical Summary ---
Author Organization [facility] Angel Alfaro Address [address] [place] [address] Care Team Providers Care Options Trader Name Role Phone Issa Gonzales MD Primary [...] Active Active Problems No known active problems Family History Relation Name Status Comments Daughter [...] on file Legal Sex Female 3:07 PM LITERACY EDUCATION PROFESSOR Gender Identity Not on file Sexual Orientation Not on file Last Filed Vital Signs Vital Sign Reading Time Taken Comments Blood Pressure 139/81 06/03/2023 10:49 AM LITERACY EDUCATION PROFESSOR Pulse 98 06/03/2023 10:49 AM LITERACY EDUCATION PROFESSOR Temperature 36.7 C (98.1 F) 05/20/2023 10:37 AM LITERACY EDUCATION PROFESSOR Respiratory Rate 18 06/03/2023 10:49 AM LITERACY EDUCATION PROFESSOR Oxygen Saturation 96% 06/03/2023 10:49 AM LITERACY EDUCATION PROFESSOR Inhaled Oxygen Concentration - - Weight 77.6 kg (171 lb) 06/03/2023 10:49 AM LITERACY EDUCATION PROFESSOR Height 152.4 cm (5') 05/20/2023 10:37 AM LITERACY EDUCATION PROFESSOR Body Mass Index 33.4 05/20/2023 10:37 AM LITERACY EDUCATION PROFESSOR Plan of Treatment Health Maintenance Due Date Last Done Comments DTAP/TDAP/TD VACCINES (1 - Tdap) 09/19/1967 PNEUMOCOCCAL VACCINE 50+ YEARS (1 of 1 - PCV) 09/18/18 99 ZOSTER VACCINE (1 of 2) 1998 OSTEOPOROSIS SCREENING 2013 RSV VACCINE (60+ or ) (1 - 1-dose 75+ series) 09/19/2023 INFLUENZA VACCINE (#1) 2024 Insurance Care Teams Options Trader Relationship Specialty Start Date End Date Issa Gonzales MD PCP - General Internal Medicine 05/04/23
--- OUTSIDE RECORDS SUMMARY | 2025-01-17 13:39 | XMS_ITS | Clinical Summary ---
Author Organization [facility] Address [address] [place] [address] Care Team Providers Care Food Writer Name Role Phone Jun Siddiqi MD Primary Care Provider [phone] Source Comments [facility],non-owned Affiliates and Associated Physician Practices is amultiple site organization consisting of ambulatory clinics and hospital sitesin [place], [place], [place] and [place]. This disclosure is being madepursuant to the Care Everywhere program and may not contain all information available regarding this patient. Last updated 18.[facility] Medications * Be aware that medications may not be up to date on this document. Alwaysverify current medications with the patient. diazePAM (VALIUM) 5 MG tablet 06/19/2020 Active vitamin D, ergocalciferol, (DRISDOL) 1.25 MG (12638 UT) capsule TK 1 C PO Q WK 02/05/2020 Active traZODone (DESYREL) 50 MG tablet TAKE 1 TABLET BY MOUTH EVERY DAY NEEDED Active raNITIdine (ZANTAC) 300 MG tablet TK 1 T PO QD HS Active omeprazole (PRILOSEC) 20 MG capsule TAKE 1 CAPSULE BY MOUTH EVERY DAY NEEDED 10/02/2020 Active sulfamethoxazol e-trimethoprim (Bactrim DS; Septra DS) 800-160 MG tablet Take 1 (one) tablet by mouth once daily 2 tablet 4 06/28/2024 Active Active Problems No known active problems Social History Tobacco Use Types Packs/Day Years Used Date Smoking Tobacco: Never Smokeless Tobacco: Never Comments Unknown Sex and Gender Information Value Date Recorded Sex Assigned at Not on file Legal Sex Female 12:11 PM CDT Gender Identity Not on file Sexual Orientation Not on file Last Filed Vital Signs Vital Sign Reading Time Taken Comments Blood Pressure - - Pulse - - Temperature - - Respiratory Rate - - Oxygen Saturation - - Inhaled Oxygen Concentration - - Weight 83.9 kg (185 lb) 10/28/2020 11:50 AM CDT Height 144.8 cm (4' 9) 10/28/2020 11:50 AM CDT Body Mass Index 40.03 10/28/2020 11:50 AM CDT Plan of Treatment Health Maintenance Due Date Last Done Comments BONE DENSITY TESTING 1950 HEPATITIS C SCREENING 09/14/1966 DTAP/TDAP/TD VACCINES (1 - Tdap) 09/19/1967 PNEUMOCOCCAL VACCINE 50+ (1 of 1 - PCV) 1998 ZOSTER VACCINE (1 of 2) 1998 Respiratory Syncytial Virus (RSV) Vaccine Pt: or over 60 yrs (1 - 1-dose 75+ series) 09/19/2023 COVID-19 VACCINE (1 - 2023- season) 2024 05/06/2022, 11/12/2021, 03/13/2021, Additional history exists DEPRESSION SCREENING 05/17/2024 INFLUENZA VACCINE (#1) 2025 , 03/11/2020, 03/20/2019, Additional history exists HEPATITIS B VACCINE Aged Out No longe [...] A/C/Y/W VACCINE Aged Out No longer eligible based on patient's age to complete this topic Insurance [address] [place] [id number] [facility] Member Subscriber Plan / Payer (Ef fective for All Dates) Name:Paula Rick Relation to Subscriber:Self Name:PAULA BROWNE Payer ID:[id number] (NAIC) Group ID:Not on file Type:Medicaid Managed Care Address: ATTN CLAIMS DEPARTMENT [place] [id number] [facility] * Guarantor: PAULA BROWNE Account Type Relation to Patient Date of Phone Billing Address Personal/Family 1950 [address] Care Teams Food Writer Relationship Specialty Start Date End Date Jun Siddiqi MD PCP - General Family Medicine 10/28/20
== END 2025-01-17 12:15 | disposition home or self-care (01) ==
LOC: ANHFOHIMG 12:14
PROVIDERS: PCP Internal Medicine; Visit Provider Internal Medicine
DX: Z12.31 Encounter for screening mammogram for malignant neoplasm of breast (principal)
CPT/HCPCS: 77063; 77067